=== PATIENT | female | born 1995 | race Caucasian/White ===

== ENCOUNTER 2017-01-23 11:12 | Emergency (ER) | payer BC ==
[2017-01-23 12:44] VITALS: BP 104/64
--- NOTE | 2017-01-23 13:22 | UC ---
Respiratory Complaint HPI - HPI Summary HPI Summary: 4 week of cough, and congestion no fevers - History of Current Complaint Hx Obtained From: Patient Hx Last Menstrual Period: 12/24/16 ?: No Onset/Duration: Gradual Onset, Lasting Weeks - 4, Still Present Timing: Constant Severity Initially: Mild Pain Intensity: 3 Pain Scale Used: 0-10 Numeric Character: Cough: Nonproductive Aggravating Factors: Nothing Alleviating Factors: Nothing Associated Signs And Symptoms: Positive: URI, Nasal Congestion <Sheron Olguin - Last Filed: 01/23/17 13:48> <AleidaBridgette Turner - Last Filed: 01/23/17 14:28> - History of Current Complaint Chief Complaint: UCRespiratory Stated Complaint: COUGH RUNNY NOSE BODY ACHES Time Seen by Provider: 01/23/17 12:49 - Allergies/Home Medications Allergies/Adverse Reactions: Allergies Allergy/AdvReac Type Severity Reaction Status Date / Time seasonal Allergy Sneezing Uncoded 01/23/17 12:44 Home Medications: Home Medications Amoxicillin [Moxatag] 875 mg PO BID 01/23/17 [History Confirmed 01/23/17] Benzonatate CAP* [Tessalon CAP*] 100 - 200 mg PO BEDTIME PRN 01/23/17 [History Confirmed 01/23/17] Biotin 500 mcg PO DAILY 01/23/17 [History Confirmed 01/23/17] Multivitamins/Minerals TAB* [Thera M Plus TAB*] 1 tab PO DAILY 01/23/17 [ History Confirmed 01/23/17] PMH/Surg Hx/FS Hx/Imm Hx Previously Healthy: Yes - Surgical History Surgical History: None - Family History Family History: no cardio vascular issues reported in family lineage - Social History Occupation: Student Lives: With Family Alcohol Use: None Substance Use Type: None Smoking Status (MU): Never Smoked Tobacco <Sheron Olguin - Last Filed: 01/23/17 13:48> Review of Systems Constitutional: Negative Skin: Negative Eyes: Negative ENT: Nasal Discharge Respiratory: Cough Cardiovascular: Negative Gastrointestinal: Negative Genitourinary: Negative Motor: Negative Neurovascular: Negative Musculoskeletal: Negative Neurological: Negative Psychological: Negative All Other Systems Reviewed And Are Negative: Yes <Sheron Olguin - Last Filed: 01/23/17 13:48> Physical Exam Triage Information Reviewed: Yes Appearance: Well-Appearing, No Pain Distress, Well-Nourished Vital Signs: Initial Vital Signs Temp 98.4 F 01/23/17 12:39 Pulse 69 01/23/17 12:39 Resp 18 01/23/17 12:39 BP 104/64 01/23/17 12:39 Pulse Ox 98 01/23/17 12:39 Vital Signs Reviewed: Yes Eye Exam: Normal Eyes: Positive: Conjunctiva Clear ENT Exam: Normal ENT: Positive: Normal ENT inspection, Hearing grossly normal, Pharynx normal, Nasal congestion, Nasal drainage, TMs normal. Negative: Tonsillar swelling, Tonsillar exudate, Trismus, Muffled/hoarse voice Dental Exam: Normal Neck exam: Normal Neck: Positive: Supple, Nontender, No Lymphadenopathy Respiratory Exam: Normal Respiratory: Positive: Chest non-tender, No respiratory distress, No accessory muscle use, Wheezing Cardiovascular Exam: Normal Cardiovascular: Positive: RRR, No Murmur, Pulses Normal, Brisk Capillary Refill Musculoskeletal Exam: Normal Musculoskeletal: Positive: Strength Intact, ROM Intact, No Edema Neurological Exam: Normal Neurological: Positive: Alert, Muscle Tone Normal Psychological Exam: Normal Skin Exam: Normal <Sheron Olguin - Last Filed: 01/23/17 13:48> Vital Signs: Initial Vital Signs Temp 98.4 F 01/23/17 12:39 Pulse 69 01/23/17 12:39 Resp 18 01/23/17 12:39 BP 104/64 01/23/17 12:39 Pulse Ox 98 01/23/17 12:39 <Bridgette Shin F - Last Filed: 01/23/17 14:28> UC Diagnostic Evaluation - Laboratory O2 Sat by Pulse Oximetry: 98 <Sheron Olguin - Last Filed: 01/23/17 13:48> Respiratory Course/Dx - Course Course Of Treatment: albuterol, flonase, increase fluids, follow with [facility] or return to [facility] as needed - Differential Dx/Diagnosis Differential Diagnosis/HQI/PQRI: Asthma, Bronchitis, Lower Resp Infection, Sinusitis Provider Diagnoses: URI <Sheron Olguin - Last Filed: 01/23/17 13:48> Discharge <Sheron Olguin - Last Filed: 01/23/17 13:48> <Bridgette Shin - Last Filed: 01/23/17 14:28> - Discharge Plan Condition: Stable Disposition: HOME Prescriptions: Albuterol HFA INHALER* [Ventolin HFA Inhaler*] 2 puff INH Q4H PRN #1 mdi PRN Reason: Cough Fluticasone NASAL SPRAY 50MCG* [Flonase NASAL SPRAY 50MCG*] 2 spray BOTH NARES DAILY #1 btl Patient Education Materials: How to Use a Metered-Dose Inhaler (ED), Upper Respiratory Infection (ED), How to Use Nasal [place] (ED) Referrals: Non Staff,Doctor [Primary Care Provider] - Additional Instructions: Follow with [facility] or return as needed--
== END 2017-01-23 13:32 | disposition home or self-care (01) ==
LOC: UCCORT 11:12
DX: J06.9 Acute upper respiratory infection, unspecified (principal)
CPT/HCPCS: 99202; G0463

== ENCOUNTER 2017-02-15 12:07 | Emergency (ER) | payer BC ==
[2017-02-15 13:10] VITALS: BP 100/65
--- NOTE | 2017-02-15 14:28 | UC ---
Throat Pain/Nasal James HPI - HPI Summary HPI Summary: pt presents with c/o sore throat, left ear ache X 3 -4 days. Denies history of mono. Pt is a student at [employer] - History of Current Complaint Chief Complaint: UCGeneralIllness Stated Complaint: THROAT COMPLAINT Time Seen by Provider: 02/15/17 14:10 Hx Obtained From: Patient Hx Last Menstrual Period: 01/27/17 ?: No Onset/Duration: Gradual Onset, Lasting Days Severity: Moderate Associated Signs & Symptoms: Positive: Dysphagia Related History: Other (Noted In Comments) - ear tubes as a child - Allergies/Home Medications Allergies/Adverse Reactions: Allergies Allergy/AdvReac Type Severity Reaction Status Date / Time seasonal Allergy Sneezing Uncoded 02/15/17 13:02 Home Medications: Home Medications Acetaminophen [Tylenol] 2 tab PO Q4HR PRN 02/15/17 [History Confirmed 02/15/17] PMH/Surg Hx/FS Hx/Imm Hx Previously Healthy: Yes - Surgical History Surgical History: Yes - ear tubes as a child - Family History Family History: no cardio vascular issues reported in family lineage - Social History Occupation: Student - [employer] Alcohol Use: None Substance Use Type: None Smoking Status (MU): Never Smoked Tobacco Review of Systems Constitutional: Fever - unsure, Chills, Fatigue Skin: Negative Eyes: Negative ENT: Sore Throat Respiratory: Negative Cardiovascular: Negative Gastrointestinal: Negative Genitourinary: Negative Motor: Negative Neurovascular: Negative Musculoskeletal: Negative Neurological: Negative Psychological: Negative All Other Systems Reviewed And Are Negative: Yes Physical Exam Triage Information Reviewed: Yes Appearance: Ill-Appearing Vital Signs: Initial Vital Signs Temp 97.9 F 02/15/17 13:05 Pulse 68 02/15/17 13:05 Resp 16 02/15/17 13:05 BP 100/65 02/15/17 13:05 Pulse Ox 99 02/15/17 13:05 Vital Signs Reviewed: Yes Eye Exam: Normal ENT Exam: Other ENT: Positive: TM bulging, TM red - left, Tonsillar swelling, Tonsillar exudate Neck: Positive: Enlarged Nodes @ - bilateral cervical chain Respiratory Exam: Normal Cardiovascular Exam: Normal Abdominal Exam: Normal Musculoskeletal Exam: Normal Neurological Exam: Normal Psychological Exam: Normal Skin Exam: Normal Throat Pain/Nasal Course/Dx - Differential Dx/Diagnosis Differential Diagnosis/HQI/PQRI: Mononucleosis, Tonsillitis Provider Diagnoses: tonsillitis Discharge - Discharge Plan Condition: Stable Disposition: HOME Prescriptions: Penicillin VK TAB 500 MG(NF) [Penicillin VK 500 mg Tab(NF)] 500 mg PO Q8HR #30 tab Patient Education Materials: Tonsillitis (ED) Referrals: [facility] [Outside] Non Staff,Doctor [Primary Care Provider] - Additional Instructions: Please follow up with your PCP or return to clinic as needed.
== END 2017-02-15 14:37 | disposition home or self-care (01) ==
LOC: UCCORT 12:07
DX: J03.90 Acute tonsillitis, unspecified (principal)
CPT/HCPCS: 87651; 99212; G0463